=== PATIENT | female | born 1990 | race African-American/Black ===

== ENCOUNTER 2019-07-23 10:53 | Emergency (ER) | payer OTHER, SELFPAY ==
[2019-07-23 11:09] VITALS: BP 108/74; PULSE 60; RESP 15; TEMP 36.1; O2SAT 99; BMI 25.3
--- NOTE | 2019-07-23 11:10 | DI.US.S_ITS ---
PROCEDURE: US OB <= 14 WEEKS FETUS INDICATIONS: 8 WEEKS; BLEEDING, CRAMPING OUTSIDE/PRIOR DATING DATA: Last menstrual period (LMP): Unknown. First dating scan (date and location): 07/23/19. Estimated date of delivery (MARGOT) from first dating scan: 03/18/20. TECHNIQUE: Real-time scanning was performed of the fetus and maternal pelvic organs, with image documentation. Endovaginal scanning was also performed to better visualize the fetus and maternal ovaries. COMPARISON: None. FINDINGS: Embryo: There is a cystic structure within the uterus likely representing a gestational sac. No discrete yolk sac or pole visualized. Mean sac diameter measures approximately 1.1 cm corresponding to a gestational age of 5 weeks 6 days. No adolfo-gestational hematoma identified. Measurement variability in dating: +/- 4 weeks by LMP, +/- 7 days by mean sac diameter (use before 6 weeks gestation if crown-rump length not able to be measured), +/- 5 days by crown-rump length (up to 8 weeks 6 days gestation), +/- 7 days by crown-rump length (up to 13 weeks 6 days gestation). Maternal organs: Ovaries measure 1.1 x 2.9 x 1.0 cm on the right and 3.3 x 3.6 x 2.5 cm on the left. Within the left ovary, there is an oval isoechoic structure with posterior acoustic enhancement and peripheral vascularity on color Doppler interrogation. This measures up to 2.2 x 2.1 x 2.0 cm. Findings likely represent a corpus luteal cyst. Limited images through the kidneys demonstrate no hydronephrosis. IMPRESSION: 1. Intrauterine cystic structure likely representing a gestational sac demonstrated with mean sac diameter corresponding to a gestational age of 5 weeks 6 days. No discrete pole or yolk sac identified at this time. A pseudo-gestational sac with an ectopic cannot be fully excluded. Recommend followup clinically and a repeat ultrasound if indicated. 2. Isoechoic structure in the left ovary likely represents a corpus luteal cyst. Dictated by: Richmond Trejo M.D. on 07/23/2019 at 11:33 Approved by: Richmond Trejo M.D. on 07/23/2019 at 11:38
[2019-07-23 12:10] LABS: Add Manual Diff / Slide Review NO; Basophils Absolute Auto 100 /uL (0-100); Basophils Percent Auto 1.1 % (0-2); Eosinophils Absolute Auto 100 /uL (0-450); Eosinophils Percent Auto 1.7 % (2-4); Hematocrit 40.7 % (36-46); Hemoglobin 13.5 g/dL (12.0-16.0); Lymphocytes Absolute Auto 3500 /uL (1100-4500); Lymphocytes Percent Auto 41.3 % (25-40); Mean Corpuscular HGB Conc 33.1 % (30-36); Mean Corpuscular Hemoglobin 30.5 PG (26-34); Mean Corpuscular Volume 92.2 fL (80-100); Monocytes Absolute Auto 700 /uL (0-900); Neutrophils Absolute Auto 4000 /uL (1500-7000); Neutrophils Percent Auto 47.9 % (50-75); Platelet Count 278 X10^3/uL (150-400); Red Blood Cell Count 4.42 X10^6/uL (4.0-5.2); Red Cell Distribution Width 13.4 % (11.6-14.8); White Blood Cell Count 8.4 X10^3/uL (4.5-11.0)
[2019-07-23 12:13] LABS: Amorphous Sediment Urine 1+; RBC Urine 1-5/HPF (0-5/HPF); Squamous Epithelial Cell Urine 1-5 /HPF (0-5/HPF); WBC Urine 0-1/HPF (0-5/HPF)
[2019-07-23 12:14] LABS: Bacteria Urine Occasional (0-1); Culture Indicated Urine Cult Not Indicated
[2019-07-23 12:23] LABS: Alanine Aminotransferase 13 IU/L (<35); Albumin 4.4 g/dL (3.5-5.0); Albumin Globulin Ratio 1.2 (1.0-2.8); Alkaline Phosphatase 62 U/L (38-126); Aspartate Aminotransferase 39 IU/L (14-36); BUN Creatinine Ratio 12.5 (6-22); Bilirubin Total 0.5 mg/dL (0.2-1.3); Blood Urea Nitrogen 10 mg/dL (7-17); Calcium 9.4 mg/dL (8.4-10.2); Carbon Dioxide 25 mmol/L (22-32); Chloride 104 mmol/L (98-107); Estimated Glomerular Filt Rate > 60.0 mL/min (>60); Globulin 3.6 g/dL (1.7-4.1); Glucose 88 mg/dL (70-100); HEMOLYSIS < 15 (0-50); Potassium 4.6 mmol/L (3.4-5.1); Sodium 138 mmol/L (137-145)
[2019-07-23 13:06] LABS: HCG Quantitative /Beta subunit 24643 mIU/mL
[2019-07-23 13:53] VITALS: BP 108/80; PULSE 55; RESP 18; O2SAT 98
--- NOTE | 2019-07-23 15:22 | ED_ITS ---
HPI - <MIRIAM Oquendo - Last Filed: 07/23/19 15:29> General Chief complaint: OB/Uterine Contractions Stated complaint: 8 weeks, bleeding Time Seen by Provider: 07/23/19 11:27 Source: patient Mode of arrival: Ambulatory Limitations: no limitations History of Present Illness HPI Narrative: The patient is a 29-year-old female nonsmoker with history of blighted ovum who presents with a chief complaint of vaginal bleeding in early . She does not know when her last previous menstrual cycle was, thinks of his middle May but is not sure. She states that she is hypothyroid in this there's offer cycles. She states she thinks she is about 8 weeks , had positive urine test. She states she started having vaginal bleeding last night, had spotting and this morning soaked through a panty liner. She denies any fevers nausea vomiting diarrhea dysuria urgency or frequency. She stated that she had transient left-sided abdominal cramping earlier today, but does not at this point time. Related Data Allergies Allergy/AdvReac Type Severity Reaction Status Date / Time ciprofloxacin Allergy Verified 07/23/19 11:09 Review of Systems <MIRIAM Oquendo - Last Filed: 07/23/19 15:29> Review of Systems Narrative: GENERAL: Denies chills, fatigue, malaise, fever, sweats. HEENT: Denies sinus pain, ear pain, sore throat, difficulty swallowing, dizzines s. RESPIRATORY: Denies dyspnea, cough, wheezing, hemoptysis, sputum. CARDIOVASCULAR: Denies chest pain, palpitations, orthopnea, edema, GASTROINTESTINAL: Denies nausea, vomiting, abdominal pain, diarrhea, constipation, melena. : See HPI MUSCULOSKELETAL: denies weakness, joint pain, or bony pain SKIN: Denies rash, skin lesions, or other NEUROLOGIC: Denies weakness, headache, numbness, change in speech, confusion, seizures, incoordination. PSYCHIATRIC: No concerning psychosocial issues. 12 point review of systems is negative except for those stated above Exam <MIRIAM Oquendo - Last Filed: 07/23/19 15:29> Narrative Exam Narrative: GENERAL: This is a well-nourished, well-developed patient, in no acute distress. HEAD: Atraumatic. Normocephalic. No temporal or scalp tenderness. EYES: Pupils equal round and reactive. Extraocular motions intact. No scleral ic terus. No injection or drainage. ENT: Nose without bleeding, purulent drainage or septal hematoma. Throat without erythema, tonsillar hypertrophy or exudate. Uvula midline. Airway patent. NECK: Trachea midline. No JVD or lymphadenopathy. Supple, nontender, no meningeal signs. CARDIOVASCULAR: Regular rate and rhythm without murmurs, gallops, or rubs. RESPIRATORY: Clear to auscultation. Breath sounds equal bilaterally. No wheezes, rales, or rhonchi. No cough. No increased respiratory effort. No accessory muscle use. GASTROINTESTINAL: Abdomen soft, non-tender, nondistended. No hepato-splen omegaly, or palpable masses. No guarding. Active bowel sounds all 4 quadrants. EXTREMITIES: No clubbing, cyanosis, or edema. No joint tenderness, effusion, or edema noted. BACK: Nontender without deformity or crepitance. No flank tenderness. NEURO: AOx3. SKIN: No rash or erythema. Initial Vital Signs Initial Vital Signs: Vital Signs Temperature 97 F L 07/23/19 11:09 Pulse Rate 60 07/23/19 11:09 Respiratory Rate 15 07/23/19 11:09 Blood Pressure 108/74 07/23/19 11:09 Pulse Oximetry 99 07/23/19 11:09 <Lisset Nelson MD - Last Filed: 07/23/19 20:01> Initial Vital Signs Initial Vital Signs: Vital Signs Temperature 97 F L 07/23/19 11:09 Pulse Rate 60 07/23/19 11:09 Respiratory Rate 15 07/23/19 11:09 Blood Pressure 108/74 07/23/19 11:09 Pulse Oximetry 99 07/23/19 11:09 Course <KRISTAL Oquendo-MARIA LUISA - Last Filed: 07/23/19 15:29> Orders Ordered: ED Orders 07/23/19 11:10 US OB <= 14 weeks fetus Stat 07/23/19 11:11 Urine Microscopic Stat 07/23/19 12:01 ABO RH Type Stat Complete Blood Count AUTO DIFF Stat Comprehensive Metabolic Panel Stat HCG Quantitative Stat Vital Signs Vital signs: Vital Signs - 8 hr 07/23/19 13:53 Pulse Rate 55 L Respiratory Rate 18 Blood Pressure [Right Arm] 108/80 Pulse Oximetry 98 <Lisset Nelson MD - Last Filed: 07/23/19 20:01> Orders Ordered: ED Orders 07/23/19 11:10 US OB <= 14 weeks fetus Stat 07/23/19 11:11 Urine Microscopic Stat 07/23/19 12:01 ABO RH Type Stat Complete Blood Count AUTO DIFF Stat Comprehensive Metabolic Panel Stat HCG Quantitative Stat Vital Signs Vital signs: Vital Signs - 8 hr 07/23/19 13:53 Pulse Rate 55 L Respiratory Rate 18 Blood Pressure [Right Arm] 108/80 Pulse Oximetry 98 MDM - OB/Uterine Contractions <MIRIAM Oquendo - Last Filed: 07/23/19 15:29> Lab Data Result diagrams: 07/23/19 12:01 07/23/19 12:01 Labs: Lab Results 07/23/19 07/23/19 07/23/19 Range/Units 11:11 12:01 12:01 WBC 8.4 (4.5-11.0) X10^3/uL RBC 4.42 (4.0-5.2) X10^6/uL Hgb 13.5 (12.0-16.0) g/dL Hct 40.7 (36-46) % MCV 92.2 (80-100) fL MCH 30.5 (26-34) PG MCHC 33.1 (30-36) % RDW 13.4 (11.6-14.8) % Plt Count 278 (150-400) X10^3/uL Neut % (Auto) 47.9 L (50-75) % Lymph % (Auto) 41.3 H (25-40) % [place] % (Auto) 8.0 (3-14) % Eos % (Auto) 1.7 L (2-4) % Baso % (Auto) 1.1 (0-2) % Neut # (Auto) 4000 (6250-4327) /uL Lymph # (Auto) 3500 (6585-7448) /uL [place] # (Auto) 700 (0-900) /uL Eos # (Auto) 100 (0-450) /uL Baso # (Auto) 100 (0-100) /uL Sodium (137-145) mmol/L Potassium (3.4-5.1) mmol/L Chloride (98-107) mmol/L Carbon Dioxide (22-32) mmol/L BUN (7-17) mg/dL Creatinine (0.52-1.04) mg/dL Estimated GFR (>60) mL/min BUN/Creatinine Ratio (6-22) Glucose (70-100) mg/dL Calcium (8.4-10.2) mg/dL Total Bilirubin (0.2-1.3) mg/dL AST (14-36) IU/L ALT (<35) IU/L Alkaline Phosphatase (38-126) U/L Total Protein (6.3-8.2) g/dL Albumin (3.5-5.0) g/dL Globulin (1.7-4.1) g/dL Albumin/Globulin Ratio (1.0-2.8) HCG, Quant 73593 mIU/mL Urine RBC 1-5/hpf (0-5/HPF) Urine WBC 0-1/hpf (0-5/HPF) Ur Squamous Epith Cells 1-5 /hpf (0-5/HPF) Amorphous Sediment 1+ Urine Bacteria Occasional (0-1) (None) Ur Culture Indicated? Cult not indicated Blood Type 07/23/19 07/23/19 Range/Units 12:01 12:01 WBC (4.5-11.0) X10^3/uL RBC (4.0-5.2) X10^6/uL Hgb (12.0-16.0) g/dL Hct (36-46) % MCV (80-100) fL MCH (26-34) PG MCHC (30-36) % RDW (11.6-14.8) % Plt Count (150-400) X10^3/uL Neut % (Auto) (50-75) % Lymph % (Auto) (25-40) % [place] % (Auto) (3-14) % Eos % (Auto) (2-4) % Baso % (Auto) (0-2) % Neut # (Auto) (2098-6356) /uL Lymph # (Auto) (3765-5581) /uL [place] # (Auto) (0-900) /uL Eos # (Auto) (0-450) /uL Baso # (Auto) (0-100) /uL Sodium 138 (137-145) mmol/L Potassium 4.6 (3.4-5.1) mmol/L Chloride 104 (98-107) mmol/L Carbon Dioxide 25 (22-32) mmol/L BUN 10 (7-17) mg/dL Creatinine 0.80 (0.52-1.04) mg/dL Estimated GFR > 60.0 (>60) mL/min BUN/Creatinine Ratio 12.5 (6-22) Glucose 88 (70-100) mg/dL Calcium 9.4 (8.4-10.2) mg/dL Total Bilirubin 0.5 (0.2-1.3) mg/dL AST 39 H (14-36) IU/L ALT 13 (<35) IU/L Alkaline Phosphatase 62 (38-126) U/L Total Protein 8.0 (6.3-8.2) g/dL Albumin 4.4 (3.5-5.0) g/dL Globulin 3.6 (1.7-4.1) g/dL Albumin/Globulin Ratio 1.2 (1.0-2.8) HCG, Quant mIU/mL Urine RBC (0-5/HPF) Urine WBC (0-5/HPF) Ur Squamous Epith Cells (0-5/HPF) Amorphous Sediment Urine Bacteria (None) Ur Culture Indicated? Blood Type O Positive Point of Care Testing Test Results Positive Urine Dip Bedside Urine Glucose Negative Bedside Urine Bilirubin - Negative Bedside Urine Ketone - Negative Urine Specific [place] 1.010 Bedside Urine Occult Blood +++ Bedside Urine pH 6.5 Bedside Urine Protein - Negative Bedside Urine Urobilinogen - Negative Bedside Urine Nitrite - Negative Bedside Urine Leukocytes - Negative Esterase Imaging Data ultrasound: Radiologist's impression: [address] [address] Ultrasound Report Signed Patient: Nieves Rico#: [id number] : 1990Acct:[id number] Age/Sex: 29 / FDate of Service: 07/23/19 Loc: ED Accession Number: [id number] Procedure: US OB <= 14 weeks fetus Ordering Provider: Lisset Nelson MD PROCEDURE: US OB <= 14 WEEKS FETUS INDICATIONS: 8 WEEKS; BLEEDING, CRAMPING OUTSIDE/PRIOR DATING DATA: Last menstrual period (LMP): Unknown. First dating scan (date and location): 07/23/19. Estimated date of delivery (MARGOT) from first dating scan: 03/18/20. TECHNIQUE: Real-time scanning was performed of the fetus and maternal pelvic organs, with image documentation. Endovaginal scanning was also performed to better visualize the fetus and maternal ovaries. COMPARISON: None. FINDINGS: Embryo: There is a cystic structure within the uterus likely representing a gestational sac. No discrete yolk sac or pole visualized. Mean sac diameter measures approximately 1.1 cm corresponding to a gestational age of 5 weeks 6 days. No adolfo-gestational hematoma identified. Measurement variability in dating: +/- 4 weeks by LMP, +/- 7 days by mean sac diameter (use before 6 weeks gestation if crown-rump length not able to be measured), +/- 5 days by crown-rump length (up to 8 weeks 6 days gestation), +/- 7 days by crown-rump length (up to 13 weeks 6 days gestation). Maternal organs: Ovaries measure 1.1 x 2.9 x 1.0 cm on the right and 3.3 x 3.6 x 2.5 cm on the left. Within the left ovary, there is an oval isoechoic structure with posterior acoustic enhancement and peripheral vascularity on color Doppler interrogation. This measures up to 2.2 x 2.1 x 2.0 cm. Findings likely represent a corpus luteal cyst. Limited images through the kidneys demonstrate no hydronephrosis. IMPRESSION: 1. Intrauterine cystic structure likely representing a gestational sac demonstrated with mean sac diameter corresponding to a gestational age of 5 weeks 6 days. No discrete pole or yolk sac identified at this time. A pseudo-gestational sac with an ectopic cannot be fully excluded. Recommend followup clinically and a repeat ultrasound if indicated. 2. Isoechoic structure in the left ovary likely represents a corpus luteal cyst. Dictated by: Richmond Trejo M.D. on 07/23/2019 at 11:33 Approved by: Richmond Trejo M.D. on 07/23/2019 at 11:38 MDM Narrative Medical decision making narrative: The patient is a 29-year-old female who presents with a chief complaint of vaginal bleeding during . Her ultrasound illustrate the possible sac at 5 weeks 6 days, no associated pole. Her beta hCG is elevated. I did discuss at length that she needs repeat lab work the next few days, as well as repeat imaging. Discussed case and imaging with Dr Nleson who suggested lab work in 3 days, ultrasound 1 week, passed suggestions on to patient. Encouraged follow-up with primary care pro vider. Otherwise her urine is no signs of infection, no nitrates no side esterase etcetera. Her blood work came back within normal limits. Discussed the possibility of an early miscarriage, blighted ovum etcetera. Patient states understanding return precautions as well as follow-up care and has no questions or concerns upon discharge. Discussed the possibility of corpus luteal cyst her left ovary. Discussed return precautions the emergency department for any acute concerns, significant bleeding etc.. Patient has no questions or concerns upon discharge and states understanding of return precautions as well as follow-up care <Lisset Nelson MD - Last Filed: 07/23/19 20:01> Lab Data Labs: Lab Results 07/23/19 07/23/19 07/23/19 Range/Units 11:11 12:01 12:01 WBC 8.4 (4.5-11.0) X10^3/uL RBC 4.42 (4.0-5.2) X10^6/uL Hgb 13.5 (12.0-16.0) g/dL Hct 40.7 (36-46) % MCV 92.2 (80-100) fL MCH 30.5 (26-34) PG MCHC 33.1 (30-36) % RDW 13.4 (11.6-14.8) % Plt Count 278 (150-400) X10^3/uL Neut % (Auto) 47.9 L (50-75) % Lymph % (Auto) 41.3 H (25-40) % [place] % (Auto) 8.0 (3-14) % Eos % (Auto) 1.7 L (2-4) % Baso % (Auto) 1.1 (0-2) % Neut # (Auto) 4000 (3596-2246) /uL Lymph # (Auto) 3500 (7266-6188) /uL [place] # (Auto) 700 (0-900) /uL Eos # (Auto) 100 (0-450) /uL Baso # (Auto) 100 (0-100) /uL Sodium (137-145) mmol/L Potassium (3.4-5.1) mmol/L Chloride (98-107) mmol/L Carbon Dioxide (22-32) mmol/L BUN (7-17) mg/dL Creatinine (0.52-1.04) mg/dL Estimated GFR (>60) mL/min BUN/Creatinine Ratio (6-22) Glucose (70-100) mg/dL Calcium (8.4-10.2) mg/dL Total Bilirubin (0.2-1.3) mg/dL AST (14-36) IU/L ALT (<35) IU/L Alkaline Phosphatase (38-126) U/L Total Protein (6.3-8.2) g/dL Albumin (3.5-5.0) g/dL Globulin (1.7-4.1) g/dL Albumin/Globulin Ratio (1.0-2.8) HCG, Quant 07695 mIU/mL Urine RBC 1-5/hpf (0-5/HPF) Urine WBC 0-1/hpf (0-5/HPF) Ur Squamous Epith Cells 1-5 /hpf (0-5/HPF) Amorphous Sediment 1+ Urine Bacteria Occasional (0-1) (None) Ur Culture Indicated? Cult not indicated Blood Type 07/23/19 07/23/19 Range/Units 12:01 12:01 WBC (4.5-11.0) X10^3/uL RBC (4.0-5.2) X10^6/uL Hgb (12.0-16.0) g/dL Hct (36-46) % MCV (80-100) fL MCH (26-34) PG MCHC (30-36) % RDW (11.6-14.8) % Plt Count (150-400) X10^3/uL Neut % (Auto) (50-75) % Lymph % (Auto) (25-40) % [place] % (Auto) (3-14) % Eos % (Auto) (2-4) % Baso % (Auto) (0-2) % Neut # (Auto) (9977-9038) /uL Lymph # (Auto) (9562-5673) /uL [place] # (Auto) (0-900) /uL Eos # (Auto) (0-450) /uL Baso # (Auto) (0-100) /uL Sodium 138 (137-145) mmol/L Potassium 4.6 (3.4-5.1) mmol/L Chloride 104 (98-107) mmol/L Carbon Dioxide 25 (22-32) mmol/L BUN 10 (7-17) mg/dL Creatinine 0.80 (0.52-1.04) mg/dL Estimated GFR > 60.0 (>60) mL/min BUN/Creatinine Ratio 12.5 (6-22) Glucose 88 (70-100) mg/dL Calcium 9.4 (8.4-10.2) mg/dL Total Bilirubin 0.5 (0.2-1.3) mg/dL AST 39 H (14-36) IU/L ALT 13 (<35) IU/L Alkaline Phosphatase 62 (38-126) U/L Total Protein 8.0 (6.3-8.2) g/dL Albumin 4.4 (3.5-5.0) g/dL Globulin 3.6 (1.7-4.1) g/dL Albumin/Globulin Ratio 1.2 (1.0-2.8) HCG, Quant mIU/mL Urine RBC (0-5/HPF) Urine WBC (0-5/HPF) Ur Squamous Epith Cells (0-5/HPF) Amorphous Sediment Urine Bacteria (None) Ur Culture Indicated? Blood Type O Positive Point of Care Testing Test Results Positive Urine Dip Bedside Urine Glucose Negative Bedside Urine Bilirubin - Negative Bedside Urine Ketone - Negative Urine Specific [place] 1.010 Bedside Urine Occult Blood +++ Bedside Urine pH 6.5 Bedside Urine Protein - Negative Bedside Urine Urobilinogen - Negative Bedside Urine Nitrite - Negative Bedside Urine Leukocytes - Negative Esterase Discharge Plan Departure Patient Disposition: Home Clinical Impression: Vaginal bleeding affecting early , Threatened miscarriage Discharge Date/Time: 07/23/19 13:55 Instructions: DI for Threatened , DI for Vaginal Bleeding During Activity Restrictions/Additional Instructions: As discussed, your ultrasound correlating with a gestational age of 5 weeks. Your hormone is elevated. Please follow-up with primary care provider in the next few days. You will need repeat lab work including a repeat beta-hCG in about 3 days. You will also need further imaging such as another ultrasound in about a week Please come back to the emergency department for any acute concerns. Please follow-up with primary care provider as well as your OBGYN Referrals: Abdullahi Luis MD [Non-Staff] - Stand Alone Forms: Work Release Note
== END 2019-07-23 13:55 | disposition home or self-care (01) ==
PROVIDERS: Emergency Medicine; Emergency Provider Nurse Practitioner Family
DX: O20.0 Threatened abortion (principal); Z3A.01 Less than 8 weeks gestation of pregnancy
CPT/HCPCS: 36415; 76801; 76817; 80053; 81003; 81015; 81025; 84702; 85025; 86900; 86901; 99283; 99284

== ENCOUNTER → 2021-03-13 14:09 | Outpatient (CLI) | payer OTHER, SELFPAY ==
--- NOTE | 2021-03-13 | DI.MRI.S_ITS ---
PROCEDURE: MR KNEE RT WO CON INDICATIONS: Pain in right knee TECHNIQUE: Noncontrast sagittal PD fast spin echo and T2 fast spin echo with fat saturation, sagittal 3-D FLASH with fat saturation; coronal T1 spin echo and PD fast spin echo with fat saturation, and axial PD fast spin echo with fat saturation through the knee. COMPARISON: [facility] [place], CR, XR KNEE 4+ VIEWS RIGHT, 02/26/2021, 14:52. FINDINGS: Image quality: Excellent. Menisci: The medial and lateral menisci demonstrate normal morphology and internal signal. The meniscal root ligaments appear intact. Cruciate ligaments: The anterior and posterior cruciate ligaments appear intact. Medial structures: The medial collateral ligament appears intact. Visualized portions of the pes anserinus tendons appear normal. No abnormal bursal fluid. Lateral structures: The lateral collateral ligament, long and short heads of the biceps femoris tendon appear intact. The popliteus tendon appears normal. Iliotibial band appears normal. Anterior structures: The quadriceps and patellar tendons appear intact. Patellar alignment is normal. No femoral trochlear dysplasia or ventral trochlear prominence. Moderate edema in the superolateral aspect of the infrapatellar fat pad. Bones and cartilage: No bone marrow contusions or fractures. Mild subchondral cyst formation within the central femoral trochlea with a moderate to high-grade overlying focal full-thickness articular cartilage defect. There is moderate cartilage loss overlying the lateral femoral trochlea and lateral patellar facet inferiorly. Mild articular cartilage loss diffusely overlies the weight-bearing aspects of the medial femoral condyle and medial tibial plateau. Joint space: There is physiologic knee joint fluid. Trace Martinez's cyst. Normal appearing synovial plicae are incidentally noted. IMPRESSION: 1. Tricompartmental osteoarthritis with associated articular cartilage loss. 2. Findings consistent with mild/early lateral patellofemoral friction syndrome in the appropriate clinical setting. 3. No internal derangement. 4. Trace Martinez's cyst. Small knee joint effusion. Dictated by: Smita Gibbs M.D. on 03/13/2021 at 14:41 Approved by: Smita Gibbs M.D. on 03/13/2021 at 14:43
== END ==
PROVIDERS: Referring Provider Physical Medicine & Rehabilitation Pain Medicine; Visit Provider Physical Medicine & Rehabilitation Pain Medicine
DX: M25.561 Pain in right knee (principal); M17.11 Unilateral primary osteoarthritis, right knee; M25.461 Effusion, right knee
CPT/HCPCS: 73721